=== PATIENT | male | born 2000 | race Two or more races ===

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

== ENCOUNTER 2019-10-30 03:13 | Emergency (ER) | payer MEDICAID | END 2019-10-30 04:32 | disposition left against medical advice (07) | LOC: ER 03:16 | DX: M54.9 Dorsalgia, unspecified (principal); Z53.21 Procedure and treatment not carried out due to patient leaving prior to being seen by health care provider ==

== ENCOUNTER 2019-12-19 13:22 | Emergency (ER) | payer MEDICAID ==
[~2019-12-19] VITALS: Ht 154.9 cm; Wt 49.0 kg
[2019-12-19 13:46] VITALS: BP 112/61
== END 2019-12-19 15:08 | disposition home or self-care (01) ==
LOC: ER 13:22
DX: L29.9 Pruritus, unspecified (principal); R23.8 Other skin changes